=== PATIENT | female | born 1995 | race Caucasian/White ===

== ENCOUNTER 2023-03-09 19:32 | Emergency (ER) | payer OTHER, SELFPAY ==
[2023-03-09 19:44] VITALS: BP 158/97; PULSE 99; RESP 16; TEMP 36.8; O2SAT 97; BMI 41.3
--- NOTE | 2023-03-09 20:24 | ED.BACK1 ---
HPI - Back Pain/Injury General Chief Complaint: Back Pain/Injury Stated Complaint: BACK PAIN Time Seen by Provider: 03/09/23 19:54 Source: patient Mode of arrival: walk-in Limitations: no limitations History of Present Illness HPI Narrative: Patient is a 27-year-old female who presents to the emergency department for the evaluation of pain in the low back for the last day. She states she was petting horses when she bent over yesterday and felt a pull in her left low back. She states the pain is changing in location between the bilateral hips and paraspinal muscles of the lumbar spine. She denies any falls or direct trauma. She has had similar pain in the past. She is able to ambulate. No peripheral paresthesia or radicular pain to the lower extremities. She is not concerned for . Related Data Home Medications Medication Instructions Recorded Confirmed dextroamphetamine-amphetamine 20 20 mg PO BID 03/09/23 03/09/23 mg tablet hydroxyzine HCl 10 mg tablet 10 mg PO TID PRN anxiety 03/09/23 03/09/23 lamotrigine 150 mg tablet 150 mg PO DAILY 03/09/23 03/09/23 oxycodone-acetaminophen 5 mg-325 1 tab PO Q6H PRN pain 03/09/23 03/09/23 mg tablet (Percocet) Previous Rx's Medication Instructions Recorded ketorolac 10 mg tablet 10 mg PO TID PRN pain #10 tabs 03/09/23 methylprednisolone 4 mg tablets in See Rx Instructions .Route 03/09/23 a dose pack (Medrol (Murray)) .COMPLEX #21 ea orphenadrine citrate 100 mg 100 mg PO BID PRN muscle pain #14 03/09/23 tablet,extended release tabs Allergies Allergy/AdvReac Type Severity Reaction Status Date / Time morphine AdvReac Unknown Verified 03/09/23 19:48 Review of Systems ROS Constitutional Denies: fever or chills Ears, nose, mouth, and throat Denies: throat pain or nasal congestion Cardiovascular Denies: chest pain Respiratory Denies: shortness of breath or cough Gastrointestinal Denies: abdominal pain, nausea, vomiting or diarrhea Genitourinary Denies: painful urination or urinary incontinence Musculoskeletal Reports: back pain; Denies: neck pain, extremity pain or extremity swelling Integumentary/Breast Denies: rash Neurological Denies: numbness in extremities or weakness in extremities Endocrine Denies: excessive urination PFSH PFS Social History Smoking status: Current some day smoker Exam Narrative Exam Narrative: Gen.: Awake, alert, in no distress Head: Normocephalic, atraumatic ENT: Moist mucous membranes Respiratory: No respiratory distress, lungs clear bilaterally Cardio: Regular rate and rhythm Back: Diffuse mild tenderness of the paraspinal muscles of the left low back with no bony point tenderness of the midline spine, no obvious deformity or step-off Extremities: Moves extremities equally, normal dorsiflexion and plantarflexion of the lower extremities with normal hip flexion bilaterally. No decrease in sensation to the medial thighs Psych: Normal mood and affect Neuro: No focal neuro deficit Skin: Warm, dry, intact Constitutional Vital Signs, click to edit/add: Last Vital Signs Temp 98.3 F 03/09/23 19:44 Pulse 99 H 03/09/23 19:44 Resp 16 03/09/23 19:44 BP 158/97 H 03/09/23 19:44 Pulse Ox 97 03/09/23 19:44 O2 Del Method Room Air 03/09/23 19:44 Course Vital Signs Vital signs: Vital Signs Temperature 98.3 F 03/09/23 19:44 Pulse Rate 99 H 03/09/23 19:44 Respiratory Rate 16 03/09/23 19:44 Blood Pressure 158/97 H 03/09/23 19:44 Pulse Oximetry 97 03/09/23 19:44 Oxygen Delivery Method Room Air 03/09/23 19:44 Temperature 98.3 F 03/09/23 19:44 Pulse Rate 99 H 03/09/23 19:44 Respiratory Rate 16 03/09/23 19:44 Blood Pressure 158/97 H 03/09/23 19:44 Pulse Oximetry 97 03/09/23 19:44 Oxygen Delivery Method Room Air 03/09/23 19:44 MDM - Back Pain/Injury MDM Narrative Medical decision making narrative: Imaging deferred as the patient has a history of low back pain and had no direct injury or trauma to the low back. She is neurovascularly intact with no radicular symptoms or paresthesias. Follow-up with PCP and return to the ER if symptoms change or worsen. Medical Records Attestation: I reviewed the patient's medical records. Discharge Plan Discharge Chief Complaint: Back Pain/Injury Clinical Impression: Strain of lumbar region Patient Disposition: Home, Self-Care Time of Disposition Decision: 20:23 Condition: Good Prescriptions / Home Meds: New ketorolac 10 mg tablet 10 mg PO TID PRN (Reason: pain) Qty: 10 0RF orphenadrine citrate 100 mg tablet extended release 100 mg PO BID PRN (Reason: muscle pain) Qty: 14 0RF methylprednisolone [Medrol (Murray)] 4 mg tablets,dose pack See Rx Instructions .ROUTE .COMPLEX Qty: 21 0RF Rx Instructions: Taper as directed No Action dextroamphetamine-amphetamine 20 mg tablet 20 mg PO BID lamotrigine 150 mg tablet 150 mg PO DAILY oxycodone-acetaminophen [Percocet] 5-325 mg tablet 1 tab PO Q6H PRN (Reason: pain) hydroxyzine HCl 10 mg tablet 10 mg PO TID PRN (Reason: anxiety) Instructions: Muscle Strain (ED), Back Pain (ED) Stand Alone Forms: Portal Instructions Referrals: Bushra Mckinnon [Primary Care Provider] - 1 week Discharge Date/Time: 03/09/23 21:00
[2023-03-09] MEDS: ORPHENADRINE 60 MG/ 2 ML VIAL IM (20:47)
[2023-03-09] MEDS: KETOROLAC TROMETHAMINE 60 MG/2 ML VIAL IM (20:48)
[2023-03-09] MEDS: OXYCODONE HCL/ACETAMINOPHEN 5MG/325MG 1 TAB PO (20:48)
== END 2023-03-09 21:00 | disposition home or self-care (01) ==
PROVIDERS: Emergency Provider Internal Medicine
DX: S39.012A Strain of muscle, fascia and tendon of lower back, initial encounter (principal); Z79.899 Other long term (current) drug therapy; F17.210 Nicotine dependence, cigarettes, uncomplicated; X50.9XXA Other and unspecified overexertion or strenuous movements or postures, initial encounter
CPT/HCPCS: 96372; 99284; J1885; J2360

== ENCOUNTER 2024-10-11 09:47 | Outpatient (OUT) | payer OTHER, SELFPAY ==
--- OUTSIDE RECORDS SUMMARY | 2024-10-11 08:50 | XMS_ITS | Encounter Summary ---
Author Organization [facility] Address [address] [place] [address] Care Team Providers Care Barrel Lathe Operator Outside Name Role Phone Bushra Mckinnon MD Primary Care Provider [phone] Nikko Kenny DO Unavailable [phone] Reason for Visit * Reason Comments Infertility Pt present today to discuss fertility. Encounter Details Date Type Department Care Team (Late st Contact Info) Description 10/11/2024 8:50 AM EDT Office Visit [facility] [address] [facility] [phone] Mat Magallanes DO [address] [facility] [address] [place], [place] [id number] Female infertility; PCOS (polycystic ovarian syndrome); Abnormal uterine bleeding (AUB) Social History Tobacco Use Types Packs/Day Years Used Date Smoking Tobacco: Never Smokeless Tobacco: Never Comments:No selections avail able, vaped 2019 and radha pouches 2021 for 4 months Alcohol Use Standard Drinks/Week Comments Not Currently 0 (1 standard drink = 0.6 oz pur e alcohol) Comments No Sex and Gender Information Value Date Recorded Sex Assigned at Female 04/20/2023 7:43 AM EST Legal Sex Female 11:22 PM EDT Gender Identity Female 04/20/2023 7:43 AM EST Sexual Orientation Straight 04/20/2023 7: 43 AM EST documented as of this encounter Last Filed Vital Signs Vital Sign Reading Time Taken Comments Blood Pressure 122/80 10/11/2024 8:49 AM EDT Pulse - - Temperature - - Respiratory Rate - - Oxygen Saturation - - Inhaled Oxygen Concentration - - Weight 129 kg (284 lb) 10/11/2024 8:49 AM EDT Height 177.8 cm (5' 10 ) 10/11/2024 8:49 AM EDT Body Mass Index 40.75 10/11/2024 8:49 AM EDT documented in this encounter Plan of Treatment Upcoming Encounters Date Type Department Care Team (Late st Contact Info) Description 11/09/2024 3:50 PM EDT Office Visit [facility] [address] [facility] [place] [phone] Mat Magallanes, DO [address] [place] [address] 02/08/2025 3:20 PM EST Procedure Visit [facility] [address] [facility] [place] [phone] Mat Magallanes, DO [address] [place] [address] Scheduled Orders Name Type Priority Associated Diagnoses Orde r Schedule hCG, quantitative, Lab Routine PCOS (polycystic ovarian syndrome) Ordered: 10/11/2024 TSH Lab Routine PCOS (polycystic ovarian syndrome) Ordered: 10/11/2024 T4, free Lab Routine PCOS (polycystic ovarian syndrome) Ordered: 10/11/2024 CBC and differential Lab Routine PCOS (polycystic ovarian syndrome) Ordered: 10/11/2024 Follicle stimulating hormone Lab Routine PCOS (polycystic ovarian syndrome) Ordered: 10/11/2024 Luteinizing hormone Lab Routine PCOS (polycystic ovarian syndrome) Ordered: 10/11/2024 Hemoglobin A1c Lab Routine Abnormal uterine bleeding (AUB) Ordered: 10/11/2024 DHEA-sulfate Lab Routine PCOS (polycystic ovarian syndrome) Ordered: 10/11/2024 DHEA Lab Routine PCOS (polycystic ovarian syndrome) Expected: 10/11/2024 (Approximate), Expires: 10/11/2025 US Pelvis w/ TV Imaging Routine PCOS (polycystic ovarian syndrome) Expected: 10/11/2024, Expires: 10/11/2025 Antimullerian hormone (AMH) Lab Routine PCOS (polycystic ovarian syndrome) Abnormal uterine bleeding (AUB) Expected: 10/11/2024 (Approximate), Expires: 10/11/2025 documented as of this encounter Visit Diagnoses Diagnosis Female infertility Female infertility of unspecified origin PCOS (polycystic ovarian syndrome) Polycystic ovaries Abnormal uterine bleeding (AUB) documented in this encounter Care Teams Barrel Lathe Operator Outside Relationship Specialty Start Date End Date Bushra Mckinnon MD [address] [facility] [place] [address] PCP - General Pediatrics 07/23/22 Nikko Kenny DO [address] [facility] [address] [place] [address] Referring Physician Neurology 03/30/24 documented as of this encounter
--- OUTSIDE RECORDS SUMMARY | 2024-10-11 09:49 | XMS_ITS | Encounter Summary ---
Author Organization [facility] Address [address] [facility] [place] [address] Care Team Providers Care Web Development Instructor Name Role Phone Bushra Mckinnon MD Primary Care Provider [phone] Nikko Kenny DO Unavailable [phone] Encounter Details Date Type Department Care Team (Latest Contact Info) Description 10/10/2024 Travel Social History Tobacco Use Types Packs/Day Years Used Date Smoking Tobacco: Never Smokeless Tobacco: Never Comments:No selections avail able, vaped 2019 and radha pouches 2021 for 4 months Alcohol Use Standard Drinks/Week Comments Not Currently 0 (1 standard drink = 0.6 oz pur e alcohol) Comments Unknown Sex and Gender Information Value Date Recorded Sex Assigned at Female 04/20/2023 7:43 AM EST Legal Sex Female 11:22 PM EDT Gender Identity Female 04/20/2023 7:43 AM EST Sexual Orientation Straight 04/20/2023 7: 43 AM EST documented as of this encounter Plan of Treatment Upcoming Encounters Date Type Department Care Team (Late st Contact Info) Description 11/09/2024 3:50 PM EDT Office Visit [facility] [address] [facility] [place] [address] Mat Magallanes DO [address] [place], [place] [phone] 02/08/2025 3:20 PM EST Procedure Visit [facility] [address] [place] [address] Mat Magallanes DO [address] [place] [address] [place] [address] documented as of this encounter Visit Diagnoses Not on filedocumented in this encounter Care Teams Web Development Instructor Relationship Specialty Start Date End Date Bushra Mckinnon MD [address] [place], [place] [phone] PCP - General Pediatrics 07/23/22 Nikko Kenny DO [address] [place] [address] Referring Physician Neurology 03/30/24 documented as of this encounter
--- OUTSIDE RECORDS SUMMARY | 2024-10-11 09:49 | XMS_ITS | Encounter Summary ---
Author Organization [facility] Address [address] [facility] [place] [address] Care Team Providers Care Prestressed Concrete Laborer Name Role Phone Bushra Mckinnon MD Primary Care Provider [phone] Nikko Kenny DO Unavailable [phone] Encounter Details Date Type Department Care Team (Late st Contact Info) Description 08/16/2022 Abstract [facility] [address] [place] [phone] Ricardo Strange, DPM [address] [place], [place] [phone] Social History Tobacco Use Types Packs/Day Years Used Date Smoking Tobacco: Never Smokeless Tobacco: Never Alcohol Use Standard Drinks/Week Comments Not Currently [...] Description 11/09/2024 3:50 PM EDT Office Visit [facility] [place] [facility] [address] [facility] [place] [phone] Mat Magallanes DO [address] [facility] [place] [address] 02/08/2025 3:20 PM EST Procedure Visit [facility] [address] [facility] [place] [address] Mat Magallanes DO [address] [facility] [place] [address] documented as of this encounter Visit Diagnoses Not on filedocumented in this encounter Care Teams Prestressed Concrete Laborer Relationship Specialty Start Date End Date Bushra Mckinnon MD [address] [place] [address] PCP - General Pediatrics 07/23/22 Nikko Kenny DO [address] [place], [place] [phone] Referring Physician Neurology 03/30/24 documented as of this encounter
--- OUTSIDE RECORDS SUMMARY | 2024-10-11 09:49 | XMS_ITS | Encounter Summary ---
Author Organization [employer] Address [id number] [address] [place] [address] Care Team Providers Care Yarn Mercerizer Operator Helper Name Role Phone Bushra Mckinnon MD Primary Care Provider [phone] Encounter Details Date Type Department Care Team (Late st Contact Info) Description 03/17/2024 Telephone [facility] [address] [place] [phone] Caprice Hernandez RMA Social History Tobacco Use Types Packs/Day Years Used Date Smoking Tobacco: Never Smokeless Tobacco: Current Chew Alcohol Use Standard Drinks/Week Comments Yes 0 (1 standard drink = 0.6 oz pur e alcohol) rare Childcare Answer Date Recorded Childcare Unknown 08/11/2018 Employment Answer Date Recorded Employment Unknown 08/11/2018 Hunger Screening Answer Date Recorded Within the past 12 months we worried whether our food would run out before we got money to buy more. Never True 11/18/2023 Within the past 12 months th e food we bought just didn't last and we didn't have money to get more. Never True 11/18/2023 Purpose - Life Answer Date Recorded Purpose and direction in life Unknown Comments No Sex and Gender Information Value Date Recorded Sex Assigned at Not on file Legal Sex Female 4:15 PM EDT Gender Identity Not on file Sexual Orientation Not on file documented as of this encounter Miscellaneous Notes * Telephone Encounter - ANDIE Amaya - 03/17/2024 2:17 PM EST Patient referred with recent MRI. Please review MRI to determine if patient should schedule with spine care or neurosurgery. * Telephone Encounter - STU Hall - 03/17/2024 2:17 PM EST MRI and EMG reviewed. There is acute on chronic right L5 radiculopathy. If patient is having right or left leg radiation (as there was S1 nerve approximation) and or weakness she could see neurosurgery. If no significant symptoms, can start with spine care to trial pain management. Will need updated x-rays. Referral also mentioned bone marrow abnormality and looks like they ordered CBC, CMP and TIFFANIE but I do not see those results. * Telephone Encounter - ANDIE Amaya - 03/17/2024 2:17 PM EST Spoke with patient and she stated she wants to hold off on scheduling for now. Patient stated that her cream dumper said her labs don't show any autoimmune issues and also recommends getting a pelvic MRI. Patient stated she will call back to schedule when she's ready. documented in this encounter Plan of Treatment Not on file documented as of this encounter Visit Diagnoses Not on filedocumented in this encounter Care Teams Yarn Mercerizer Operator Helper Relationship Specialty Start Date End Date Bushra Mckinnon MD [address] [place] [address] PCP - General Family Medicine 07/30/22 documented as of this encounter
--- OUTSIDE RECORDS SUMMARY | 2024-10-11 09:49 | XMS_ITS | Encounter Summary ---
Author Organization [facility] Address [address] [facility] [place] [address] Care Team Providers Care Scoop Operator Name Role Phone Bushra Mckinnon MD Primary Care Provider [phone] Nikko Kenny DO Unavailable [phone] Encounter Details Date Type Department Care Team (Late st Contact Info) Description 10/11/2024 Bamboo flowsheet [facility] [address] [facility] [place] [address] Mat Magallanes DO [facility] [address] [place], [place] [address] Social History Tobacco Use Types Packs/Day Years Used Date Smoking Tobacco: Never Smokeless Tobacco: Never Comments:No selections avail able, vaped 2017- 2019 and radha pouches 2021 for 4 [...] EDT Office Visit [facility] [address] [place] [address] Mat Magallanes DO [address] [place] [address] 02/08/2025 3:20 PM EST Procedure Visit [facility] [address] [facility] [place] [phone] Mat Magallanes DO [address] [facility] [address] [place], [place] [phone] documented as of this encounter Visit Diagnoses Not on filedocumented in this encounter Care Teams Scoop Operator Relationship Specialty Start Date End Date Bushra Mckinnon MD [address] [place] [address] PCP - General Pediatrics 07/23/22 Nikko Kenny DO [address] [place] [address] Referring Physician Neurology 03/30/24 documented as of this encounter
--- OUTSIDE RECORDS SUMMARY | 2024-10-11 09:49 | XMS_ITS | Encounter Summary ---
Author Organization [facility] Address [address] [facility] [place] [address] Care Team Providers Care Plywood Stock Grader Name Role Phone Bushra Mckinnon MD Primary Care Provider [phone] Nikko Kenny DO Unavailable [phone] Encounter Details Date Type Department Care Team (Late st Contact Info) Description 08/09/2022 External Result Encounter [facility] External Department Unsolicited Ranulfo Osuna MD [address] [facility] [address] [place] [address] Social History Tobacco Use Types Packs/Day Years Used Date Smoking Tobacco: Never Assessed Comments Unknown Sex and Gender Information Value [...] EDT Office Visit [facility] [address] [place] [address] Mat Magallanes DO [address] [place], [place] [phone] 02/08/2025 3:20 PM EST Procedure Visit [facility] [address] [place] [address] Mat Magallanes, DO [address] [facility] [address] [place] [phone] documented as of this encounter Procedures Procedure Name Priority Date/Time Associated Diagnosis Comments VASC US LOWER EXTREMITY VENOUS DUPLEX RIGHT 08/09/2022 9:35 AM EDT documented in this encounter Results * Vascular US lower extremity venous duplex right (08/09/2022 9:35 AM EDT) Anatomical Region Laterality Modality Lower Extremities Ultrasound 08/09/2022 9:35 AM EDT Impressions 08/11/2022 10:48 AM EDT NO EVIDENCE OF DEEP VENOUS THROMBOSIS IN THE RIGHT LOWER EXTREMITY. NO SUPERFICIAL THROMBOPHLEBITIS WAS NOTED. Impression dictated by: Garry Plata M.D.08/09/2022 9:36 AM Dictation Location: [place] [address] Tech: Cristina Yuen Transcribed By: MICAH 08/09/2236 Dictated By: Garry Plata MD 08/09/2235 Signed By: <Electronically signed by MD Garry Plata in OV> 08/09/22 0936 Narrative 08/11/2022 10:48 AM EDT [facility] Main [address] [address] Ultrasound Report Signed Patient: Colleen Guajardo MR#: [id number] 12 : 1995 Acct:[id number] Age/Sex: 26 / F ADM Date: 08/08/22 Loc: ER Room: Type: [facility] ER Attending Dr: Ordering Provider: Ranulfo Osuna PA-C Date of Service: 08/08/22 US/US venous duplex LE RT: post op calf pain Copies to: Ranulfo Osuna PA-C RIGHT LOWER EXTREMITY VENOUS DUPLEX INDICATION: Painful swollen right leg Unilateral right lower extremity venous duplex Doppler study was obtained utilizing B-mode, color- flow and spectral Doppler. FINDINGS: The right common femoral, femoral, and popliteal veins showed adequate compressibility, color-flow and augmentation. The right posterior tibial and peroneal veins were compressible, as well as proximal greater saphenous vein. The contralateral left common femoral vein was compressible with color-flow and augmentation. US/US venous duplex LE RT Procedure Note Garry Plata MD - 08/11/2022 [facility] [place] [address] Ultrasound Report Signed Patient: Colleen Guajardo JMR#: [id number] [birth year] : 1995Acct:[id number] Age/Sex: 26 / FADM Date: 08/08/22 Loc: ER Room:Type: [facility] ER Attending Dr: Ordering Provider: Ranulfo Osuna PA-C Date of Service: 08/08/22 US/US venous duplex LE RT: post op calf pain Copies to: Ranulfo Osuna PA-C RIGHT LOWER EXTREMITY VENOUS DUPLEX INDICATION: Painful swollen right leg Unilateral right lower extremity venous duplex Doppler study was obtainedutilizing B-mode, color- flow and spectral Doppler. FINDINGS: The right common femoral, femoral, and popliteal veins showedadequate compressibility, color-flow and augmentation. The right posterior tibial and peronealveins were compressible, as well as proximal greater saphenous vein. The contralateral left commonfemoral vein was compressible with color-flow and augmentation. US/US venous duplex LE RT IMPRESSION: NO EVIDENCE OF DEEP VENOUS THROMBOSIS IN THE RIGHT LOWER EXTREMITY. NOSUPERFICIAL THROMBOPHLEBITIS WAS NOTED. Impression dictated by: Garry Plata M.D.08/09/2022 9:36 AM Dictation Location[facility] Tech: Cristina Yuen Transcribed By: MICAH 08/09/22935 Dictated By: Garry Plata MD 08/09/2235 Signed By: <Electronically signed by MD Garry Plata in OV> 08/09/229[address] Ranulfo Osuna MD IMG US PROCEDURES Final Result documented in this encounter Visit Diagnoses Not on filedocumented in this encounter Care Teams Plywood Stock Grader Relationship Specialty Start Date End Date Bushra Mckinnon MD [address] [facility] [place] [address] PCP - General Pediatrics 07/23/22 Nikko Kenny DO [address] [place] [address] Referring Physician Neurology 03/30/24 documented as of this encounter
--- OUTSIDE RECORDS SUMMARY | 2024-10-11 09:49 | XMS_ITS | Clinical Summary ---
Author Organization [employer] tem Address [facility] [place]-[id number] [address] [place] [address] Care Team Providers Care Packing House Supervisor Name Role Phone Bushra Mckinnon MD Primary Care Provider [phone] Allergies Active Allergy Reactions Criticality Noted Date Comments Amoxicillin Palpitations Medium 08/01/2022 Medications dextroamphetamine- amphetamine (ADDERALL) 20 mg tablet Take 1 tablet (20 mg total) by mouth in the morning and 1 tablet (20 mg total) before bedtime. Active 91-wcnp-mkogkz 9-dha 31 mg iron- 1 mg-200 mg capsuleIndications :Patient desires ,Encounte r for preconception consultation Take 1 capsule by mouth in the morning. 90 capsule 3 4 Active Active Problems Problem Noted Date Diagnosed Date Anxiety and depression 09/05/2016 Immunizations Immunization Administration Dates Next Due Influenza, Unspecified 02/08/2016 Family History Medical History Relation Name Comments Diabetes Father Hypertension Father Lung cancer Father Breast cancer Maternal Grandmother Breast cancer Maternal great-grandmother No Known Problems Mother Relation Name Status Comments Father Maternal Grandmother Maternal great-grandmother Alive Mother Alive Social History Tobacco Use Types Packs/Day Years Used Date Smoking Tobacco: Never Smokeless Tobacco: Current Chew Tobacco Cessation:Ready to Q uit: Not Asked; Counseling Given: Not Answered Alcohol Use Standard Drinks/Week Comments Yes 0 [...] on file Sexual Orientation Not on file Last Filed Vital Signs Vital Sign Reading Time Taken Comments Blood Pressure 126/82 03/31/2024 8:59 AM EST Pulse 86 03/31/2024 8:59 AM EST Temperature 36.3 C (97.3 F) 08/01/2022 10:02 AM EDT Respiratory Rate 20 03/31/2024 8:59 AM EST Oxygen Saturation 100% 08/01/2022 11: 00 AM EDT Inhaled Oxygen Concentration - - Weight 108.3 kg (238 lb 12.8 oz) 03/31/2024 8:59 AM EST Height 177.8 cm (5' 10 ) 03/31/2024 8:59 AM EST Body Mass Index 34.26 03/31/2024 8:59 AM EST Plan of Treatment Health Maintenance Due Date Last Done Comments Tobacco Counseling 1996 Depression Screening 2008 Adult BMI Follow Up Plan 2014 Pap Smear 2017 DTaP,Tdap and Td Vaccines (7 - Td or Tdap) 10/13/2019 10/12/2009, 06/30/2002, 06/11/1998, Additional history exists Influenza Vaccine 10/31/2024 12/28/2019, 02/08/2016 Adult BMI Screening 03/31/2025 03/31/2024 Tobacco Screening 03/31/2025 03/31/2024 Medical Devices Implanted Type Area Chef Teacher Device Identifier Shelf Expiration Date Model / Serial / Lot [place] Sut 2.9mm Shrt Pshlk Bcmps Ea=Bill-Only - Sna - [id number] Implanted:Qty: 1 on 08/01/2022 by Ricardo Strange DPM at [facility] [place] Right: Ankle Arthrex 09/29/2022 [id number] / NA / [id number] [place] Sut Arthx Dx Fibertak Ndl Strl Lf Ea=Bill-Only - [facility] - [id number] Implanted:Qty: 2 on 08/01/2022 by Ricardo Strange DPM at [facility] [place] Right: Ankle Arthrex 12/30/2026 AR-[id number] / NA / [id number] Insurance [employer] BENEFITS/[employer]IRL[employer] Care Teams Packing House Supervisor Relationship Specialty Start Date End Date Bushra Mckinnon MD [address] [place] [address] PCP - General Family Medicine 07/30/22
--- OUTSIDE RECORDS SUMMARY | 2024-10-11 09:49 | XMS_ITS | Encounter Summary ---
Author Organization [facility] Address [address] [place] [address] Care Team Providers Care Automotive Sales Specialist Name Role Phone Bushra Mckinnon MD Primary Care Provider [phone] Nikko Kenny DO Unavailable [phone] Encounter Details Date Type Department Care Team (Late st Contact Info) Description 07/30/2022 Orders Only [facility] [address] [place] [id number] [facility] [place], [place] [address] [place] [address] Social History Tobacco Use Types Packs/Day Years [...] 11/09/2024 3:50 PM EDT Office Visit [facility] [address] [place] [address] Mat Magallanes DO [address] [place], [place] [id number] 02/08/2025 3:20 PM EST Procedure Visit [facility] [address] [place] [address] Mat Magallanes DO [address] [facility] [place] [address] documented as of this encounter Visit Diagnoses Not on filedocumented in this encounter Care Teams Automotive Sales Specialist Relationship Specialty Start Date End Date Bushra Mckinnon MD [address] [place] [address] PCP - General Pediatrics 07/23/22 Nikko Kenny DO [address] [place] [address] Referring Physician Neurology 03/30/24 documented as of this encounter
--- OUTSIDE RECORDS SUMMARY | 2024-10-11 09:49 | XMS_ITS | Clinical Summary ---
Author Organization [facility] Address [address] [place] [address] Care Team Providers Care Technician Preventative Medicine Name Role Phone Bushra Mckinnon MD Primary Care Provider [phone] Nikko Kenny DO Unavailable [phone] Allergies Active Allergy Reactions Criticality Noted Date Comments Amoxicillin Palpitations Medium 08/01/2022 Other Reaction(s): Dizziness , Headache , Nausea Medications amphetamine-dex troamphetamine (Adderall) 20 MG tablet Take 20 mg by mouth in the morning and 20 mg before bedtime. Active hydrOXYzine HCl (Atarax) 10 MG tablet Take 10 mg by mouth. Active lamoTRIgine (LaMICtal) 150 MG tablet Take 150 mg by mouth in the morning and 150 mg in the evening. Active tiZANidine (Zanaflex) 4 MG tabletIndicatio ns:S/P foot surgery TAKE 1 TABLET BY MOUTH AT BEDTIME 30 tablet 5 Active metFORMIN XR (Glucophage-XR) 500 MG 24 hr tabletIndicatio ns:PCOS (polycystic ovarian syndrome),Abnor mal uterine bleeding (AUB) Take 1 tablet (500 mg) by mouth in the evening. Take with meals Do not crush, chew, or split. 30 tablet 11 5 10/12/19 26 Active MV-Min-Fe Fum-FA-DHA ( 1 PO) Take by mouth 10/12/19 25 Discontinu ed(Therapy completed) Encounters Date Type Department Care Team Description 10/11/2024 8:50 AM EDT Office Visit [facility] [address] [place] [address] [place] [address] Mat Magallanes DO Female infertility; PCOS (polycystic ovarian syndrome); Abnormal uterine bleeding (AUB) 10/11/2024 Bamboo flowsheet [facility] [address] [place] [address] [place] [phone] Mat Magallanes DO 10/10/2024 Travel from Last 3 Months Immunizations Immunization Administration Dates Next Due DTaP 06/30/2002 DTaP / HiB / IPV 11/30/1997,10/11/1997, 8 DTaP, Unspecified 06/11/1998, 8,10/19/1997,1997 HPV 9-Valent 04/03/2020,03/05/2020,01/09/2020 Hep B, Adolescent or Pediatric 1996 Hib (HbOC) 06/11/1998,11/30/1997 Hib / Hep B 10/19/1997,09/11/1997 IPV 06/30/2002 Influenza, Unspecified 02/08/2016 Influenza, injectable, MDCK, preservative free, quadrivalent 12/28/2019 Influenza, seasonal, injectable 02/08/2016 MMR 06/30/2002,10/19/1997 OPV 11/30/1997,10/19/1997,09/11/1997 Tdap 10/12/2009 Family History Medical History Relation Name Comments Cancer Father Butch Shock - lung cancer Cancer Maternal Grandfather Great Grandma Starr Romero - breast cancer Cancer Maternal Grandmother Nicole Morales - johnathon ast cancer Relation Name Status Comments Father Butch Shock - lung cancer Maternal Grandfather Great Grandma Starr Heather - breast cancer Maternal Grandmother Nicole Morales - breast cancer Mother Alive Social History Tobacco Use Types [...] Orientation Straight 04/20/2023 7: 43 AM EST Last Filed Vital Signs Vital Sign Reading Time Taken Comments Blood Pressure 122/80 10/11/2024 8:49 AM EDT Pulse 83 03/30/2024 8:27 AM EST Temperature 36.4 C (97.5 F) 11/05/2022 9:47 AM EDT Respiratory Rate - - Oxygen Saturation 97% 02/22/2024 9:08 AM EST Inhaled Oxygen Concentration - - Weight 129 kg (284 lb) 10/11/2024 8:49 AM EDT Height 177.8 cm (5' 10 ) 10/11/2024 8:49 AM EDT Body Mass Index 40.75 10/11/2024 8:49 AM EDT Plan of Treatment Upcoming Encounters Date Type Department Care Team (Late st Contact Info) Description 11/09/2024 3:50 PM EDT Office Visit [facility] [address] [place] [address] [place] [phone] Mat Magallanes DO [address] [place] [address] 02/08/2025 3:20 PM EST Procedure Visit [facility] [address] [place] [address] [place] [phone] Mat Magallanes, DO [address] [place] [address] Insurance [employer] Care Teams Technician Preventative Medicine Relationship Specialty Start Date End Date Bushra Mckinnon MD [address] [place] [address] PCP - General Pediatrics 07/23/22 Nikko Kenny DO [address] [place] [address] Referring Physician Neurology 03/30/24
[2024-10-11 10:26] LABS: Hematocrit 42.4 % (36.0-48.0); Hemoglobin 14.0 g/dL (12.0-16.0); Immature Granulocytes Abs Auto 0.02 10^3/uL (0.00-0.03); Immature Granulocytes Pct Auto 0.2 % (0.0-0.5); Lymphocytes Absolute Auto 2.2 10^3/uL (1.2-3.8); Mean Corpuscular HGB Conc 33.0 g/dL (29.9-35.2); Mean Corpuscular Hemoglobin 28.5 pg (26.7-34.0); Mean Corpuscular Volume 86.4 fL (81.0-99.0); Platelet Count 422 10^3/uL (150-450); Red Blood Count 4.91 10^6/uL (4.20-5.40); White Blood Count 8.6 10^3/uL (4.0-11.0)
[2024-10-11 11:27] LABS: Thyroid Stimulating Hormone 2.015 uIU/mL (0.358-3.740)
[2024-10-12 12:09] LABS: FSH 3.2 mIU/mL (.)
== END 2024-10-11 09:48 | disposition home or self-care (01) ==
PROVIDERS: Visit Provider Obstetrics & Gynecology
DX: E28.2 Polycystic ovarian syndrome (principal); N93.9 Abnormal uterine and vaginal bleeding, unspecified
CPT/HCPCS: 36415; 82626; 82627; 83001; 83002; 83036; 84439; 84443; 84702; 85025

== ENCOUNTER 2025-02-17 09:58 | Day surgery (SDC) | payer OTHER, SELFPAY ==
--- OUTSIDE RECORDS SUMMARY | 2025-02-17 10:01 | XMS_ITS | Clinical Summary ---
Author Organization [facility] Address [address] [place] [address] Care Team Providers Care Retail Client Solutions Consultant Name Role Phone Bushra Mckinnon MD Primary Care Provider [phone] Nikko Kenny DO Unavailable [phone] Allergies Active AllergyReactionsCriticalityNoted DateCommentsAmoxicillinPalpitations Jdaljz6008/01/2022 Other Reaction(s): Dizziness , Headache , Nausea Medications MedicationSigDispense QuantityRefillsLast FilledStart DateEnd DateStatus amphetamine-dextroamphetamine (Adderall) 20 MG tablet Take 20 mg by mouth in the morning and 20 mg before bedtime.Active metFORMIN XR (Glucophage-XR) 500 MG 24 hr tablet Indications:PCOS (polycystic ovarian syndrome),Abnormal uterine bleeding (AUB) Take 1 tablet (500 mg) by mouth in the evening. Take with meals Do not crush, chew, or split. 30 tablet 11010/11/782685/6Active sertraline (Zoloft) 50 MG tablet Take 50 mg by mouth Daily5Active metFORMIN XR (Glucophage-XR) 500 MG 24 hr tablet Indications:PCOS (polycystic ovarian syndrome)Take 1 tablet (500 mg) by mouth in the evening. Take with meals Do not crush, chew, or split. 90 tablet 5Active letrozole (Femara) 2.5 MG chemo tablet Indications:Fallopian tube disorder,PCOS (polycystic ovarian syndrome),Abnormal uterine bleeding (AUB)Take 3 tablets (7.5 mg total) by mouth Daily for 5 days. 15 tablet /5Active letrozole (Femara) 2.5 MG chemo tablet Indications:PCOS (polycystic ovarian syndrome),Abnormal uterine bleeding (AUB) Take 3 tablets (7.5 mg total) by mouth Daily for 5 days. 15 tablet Expired Encounters DateTypeDepartmentCare JeeoAxcwryqtdvk91/15/2025Telephone [facility] [address] [facility] [place] [address] Kati Calivn LPN 01/16/2025Telephone [facility] [address] [facility] [place] [address] Kati Calvin LPN 12/20/2024Telephone [facility] [address] [facility] [place] [address] Kati Calvin LPN 12/08/2024External Result Encounter [facility] External Department Unsolicited Mat Magallanes DO 12/08/2024Telephone [facility] [address] [facility] [place] [address] Rosario Villagomez MA 12/07/2024Telephone [facility] [address] [facility] [place] [address] Kati Calvin LPN 11/18/2024Telephone [facility] [address] [facility] [place] [address] Kati Calvin, KOMAL from Last 3 Months Immunizations ImmunizationAdministration DatesNext NwoQStW5306/30/2002DTaP / HiB / IPV11/30/1997 ,10/11/1997,09/11/1997DTaP, Stjkmvqwmjq50/12/1999,11/30/1997,10/19/1997, 09/11/1997HPV 9-Wywgog1104/03/2020,03/05/2020,01/09/2020Hep B, Adolescent or Chgisuygd61/15/1997Hib ([facility])06/11/1998,11/30/1997Hib / Hep B010/19/1997, 09/11/1997IPV06/30/2002Influenza, Ldqvcsmcywt60/09/2016Influenza, injectable, MDCK, preservative free, huxsfftnrlts43/28/2020Influenza, seasonal, injectable 02/08/2016MMR06/30/2002,10/19/1997OPV1,10/19/1997,09/11/1997Tdap 10/12/2009 Family History Medical HistoryRelationNameCommentsCancerFatherJoseph Shock - lung cancerCancer Maternal GrandfatherGreat Grandma Starr Heather - breast cancerCancerMaternal GrandmotherCheryl Grieger - breast cancerRelationNameStatusCommentsFatherJoseph Shock - lung cancerDeceasedMaternal GrandfatherGreat Grandma Starr Heather - breast cancerMaternal GrandmotherCheryl Grieger - breast cancerMotherAlive Social History Tobacco UseTypesPacks/DayYears UsedDateSmoking Tobacco: NeverSmokeless Tobacco: Never Comments:No selections avail able, vaped 2017- 2019 and radha pouches 2021 for 4 months Alcohol UseStandard Drinks/WeekCommentsNot Currently0 (1 standard drink = 0.6 oz pure alcohol)CommentsNoSex and Gender InformationValueDate RecordedSex Assigned at LcuxaHftpxl25/19/2024 7:43 AM ESTLegal VvyRyijru89/15/2023 11:22 PM EDTGender ZvsztbzfCmzpqq99/19/2024 7:43 AM ESTSexual OrientationStraight 04/20/2023 7:43 AM EST Last Filed Vital Signs Vital SignReadingTime TakenCommentsBlood Peqkzppn023/7809 3:40 PM EDT Lrrfz906803/30/2024 8:27 AM FRUGmtezuhtmoi87.4 ??C (97.5 ??F)11/05/2022 9:47 AM EDTRespiratory Rate--Oxygen Zilbnrbfea98%02/22/2024 9:08 AM ESTInhaled Oxygen Concentration--Mdrsow294 kg (279 lb 8 oz)11/09/2024 3:40 PM NOMXccpjb184.8 cm (5' 10 )10/11/2024 8:49 AM EDTBody Mass Index40. 8:49 AM EDT Plan of Treatment DateTypeDepartmentCare Team (Latest Contact Info)Eoikemqtyvu36/12/2026 3:40 PM ESTProcedure Visit [facility] [address] [facility] [place] [address] Mat Magallanes DO [address] [facility] [place] [address] Procedures Procedure NamePriorityDate/TimeAssociated DiagnosisCommentsPROGESTERONERoutine 02/04/2025 10:42 AM EST EMKVOAEXVADZMpntdyn38/10/2025 4:29 PM EST SLWYMUJYIPGOBimajgz75/09/2025 10:32 AM EDT from Last 3 Months Results * Progesterone (02/04/2025 10:42 AM EST) Only the most recent of3 resultswithin the time period is included. ComponentValueRef RangeTest MethodAnalysis TimePerformed AtPathologist Signature SHTQENOIJFQG92.5ng/mLPROMEDICAComment: FEMALES: 1st Tri: ??4.7-50.7 ng/ml 2nd Tri: ??19.4-45.3 ng/ml MENSTRUATING FEMALES: Follicular: ??0.3-1.5 ng/ml Mid Luteal: ??5.2-18.6 ng/ml [place]: <0.1-0.8 ng/ml ?? PERFORMED AT [facility] [address] [facility],[place] [address] Specimen (Source)Anatomical Location / LateralityCollection Method / Volume Collection TimeReceived Time02/04/2025 10:42 AM EST02/04/2025 3:27 PM EST Narrative Authorizing ProviderResult TypeResult StatusCorey Elpidio DOLAB BLOOD ORDERABLES Final ResultPerforming OrganizationAddressCity/State/ZIP CodePhone Number [facility] from Last 3 Months Insurance Care Teams Team MemberRelationshipSpecialtyStart DateEnd Date Bushra Mciknnon MD [address] [place] [address] PCP - GeneralPediatrics07/23/22 Nikko Kenny DO [address] [place] [address] Referring PhysicianNeurology1
--- OUTSIDE RECORDS SUMMARY | 2025-02-17 10:01 | XMS_ITS | Encounter Summary ---
Author Organization [facility] Address [address] [place] [address] Care Team Providers Care Choker Setter Name Role Phone Bushra Mckinnon MD Primary Care Provider [phone] Nikko Kenny DO Unavailable [phone] Encounter Details DateTypeDepartmentCare Team (Latest Contact Info)Vchopomdtte12/15/2025Telephone [facility] [address] [place] [address] [place] [address] Kati Calvin LPN Social History Tobacco UseTypesPacks/DayYears UsedDateSmoking Tobacco: NeverSmokeless Tobacco: Never Comments:No selections avail able, vaped 2017- 2019 and radha pouches 2021 for 4 months Alcohol UseStandard Drinks/WeekCommentsNot Currently0 (1 standard drink = 0.6 oz pure alcohol)CommentsNoSex and Gender InformationValueDate RecordedSex Assigned at BzgugCrhxwy80/19/2024 7:43 AM ESTLegal ZfvRlhhun34/15/2023 11:22 PM EDTGender FeuwuuykBhxwab56/19/2024 7:43 AM ESTSexual OrientationStraight 04/20/2023 7:43 AM ESTdocumented as of this encounter Miscellaneous Notes * Telephone Encounter - Kati Calvin LPN - 02/13/2025 10:01 AM EST 02/13/25 @9:08am Patient called and voiced that she started her cycle yesterday. Patient would liketo know if HSG will be ordered with this cycle or if just medication. 10:03 am Called patient and informed her that HSG would be performed this Thursday and orders would be sent to hospital. Patient aware that radiology will reach out to setup procedure between surgeries. Patient will reach out with any questions/concerns. Kati Trujillo LPN LMP: 02/12/25 Timed intercourse: 02/23/25 Day 21 labs: 03/04/25 documented in this encounter Plan of Treatment DateTypeDepartmentCare Team (Latest Contact Info)Jlgcnjmhcwv45/12/2026 3:40 PM ESTProcedure Visit [facility] [address] [facility] [place] [address] Mat Magallanes DO [address] [facility] [place] [address] NameTypePriorityAssociated DiagnosesOrder SchedulehCG, quantitative, LabRoutine Fallopian tube disorder PCOS (polycystic ovarian syndrome) Abnormal uterine bleeding (AUB) Expected: 02/13/2025 (Approximate), Expires: 02/13/2026XR hysterosalpingogram ImagingRoutine Fallopian tube disorder PCOS (polycystic ovarian syndrome) Abnormal uterine bleeding (AUB) Expected: 02/13/2025 (Approximate), Expires: 02/13/2026documented as of this encounter Visit Diagnoses Diagnosis Fallopian tube disorder Unspecified noninflammatory disorder of ovary, fallopian tube, and broad ligament PCOS (polycystic ovarian syndrome) Polycystic ovaries Abnormal uterine bleeding (AUB) documented in this encounter Care Teams Team MemberRelationshipSpecialtyStart DateEnd Date Bushra Mckinnon MD [address] [place] [address] PCP - GeneralPediatrics07/23/22 Nikko Kenny DO [address] [place] [address] Referring PhysicianNeurology1documented as of this encounter
--- OUTSIDE RECORDS SUMMARY | 2025-02-17 10:02 | XMS_ITS | Clinical Summary ---
Author Organization [facility] tem Address [facility] [id number] [address] [place] [address] Care Team Providers Care Registration Rep Name Role Phone Services, [facility] Primary Care Provider Allergies Active AllergyReactionsCriticalityNoted DateCommentsAmoxicillinPalpitations Detyzb0408/01/2022 Medications MedicationSigDispense QuantityRefillsLast FilledStart DateEnd DateStatus dextroamphetamine-amphetamine (ADDERALL) 20 mg tablet Take 1 tablet (20 mg total) by mouth in the morning and 1 tablet (20 mg total) before bedtime.Active 45-urff-vnrtjx 9-dha 31 mg iron- 1 mg-200 mg capsule Indications:Patient desires ,Encounter for preconception consultation Take 1 capsule by mouth in the morning. 90 capsule ctive Active Problems ProblemNoted DateDiagnosed DateAnxiety and kwpbpmbbky34/07/2017 Encounters DateTypeDepartmentCare EgpiZdchzfsifpm72/06/9441Dnaylm50/10/2694Utppgm06/08/2025 Travelfrom Last 3 Months Immunizations ImmunizationAdministration DatesNext DueInfluenza, Uzwysanxbtt64/09/2016 Family History Medical HistoryRelationNameCommentsDiabetesFatherHypertensionFatherLung cancer FatherBreast cancerMaternal GrandmotherBreast cancerMaternal great-grandmotherNo Known ProblemsMotherRelationNameStatusCommentsFatherDeceasedMaternal Grandmother Maternal great-grandmotherAliveMotherAlive Social History Tobacco UseTypesPacks/DayYears UsedDateSmoking Tobacco: NeverSmokeless Tobacco: CurrentChew Tobacco Cessation:Ready to Q uit: Not Asked; Counseling Given: Not Answered Alcohol UseStandard Drinks/WeekCommentsYes0 (1 standard drink = 0.6 oz pure alcohol)rareChildcareAnswerDate CkwjhvpnQdytyiadoCtfbzbg61/12/2019Employment AnswerDate NxtinfkqChymohxymyXxztmne45/12/2019Hunger ScreeningAnswerDate RecordedWithin the past 12 months we worried whether our food would run out before we got money to buy more.Never True11/18/2023Within the past 12 months the food we bought just didn't last and we didn't have money to get more.Never True4Purpose - LifeAnswerDate RecordedPurpose and direction in life Paqpbnz23/11/2021CommentsNoSex and Gender InformationValueDate Recorded Sex Assigned at BirthNot on fileLegal UyzTgoxoi26/27/2016 4:15 PM EDTGender IdentityNot on fileSexual OrientationNot on file Last Filed Vital Signs Vital SignReadingTime TakenCommentsBlood Vrrjrcih625/8203/31/2024 8:59 AM EST Qaheh199803/31/2024 8:59 AM KQCQgvxjuzcveu68.3 ??C (97.3 ??F)08/01/2022 10:02 AM EDTRespiratory Fqgo622803/31/2024 8:59 AM ESTOxygen Kytyolwxjt675%08/01/2022 11:00 AM EDTInhaled Oxygen Concentration--Xqepjd178.3 kg (238 lb 12.8 oz)03/31/2024 8:59 AM ICHVzlyhe133.8 cm (5' 10 )03/31/2024 8:59 AM ESTBody Mass Index34.26 03/31/2024 8:59 AM EST Plan of Treatment Health MaintenanceDue DateLast DoneCommentsTobacco Nqhvssmynr16/15/1997 Depression Mevayoipa54/15/2009dult BMI Follow Up Plan2014Pap Smear 2017DTaP,Tdap and Td Vaccines (7 - Td or Tdap), 06/30/2002, 06/11/1998, Additional history existsInfluenza Nswzgje5310/31/2024 12/28/2019, 02/08/2016Adult BMI Huaauclsk01Tobacco Screening Medical Devices ImplantedTypeAreaManufacturerDevice IdentifierShelf Expiration DateModel / Serial / LotAnchor Sut 2.9mm Shrt Pshlk Bcmps Ea=Bill-Only - Sna - [id number] Implanted:Qty: 1 on 08/01/2022 by [facility]: XpankGgaraxs02/31/2023AR-8923BC / NA / [id number] Sut Arthx Dx Fibertak Ndl Strl Lf Ea=Bill-Only - Sna - [id number] Implanted:Qty: 2 on 08/01/2022 by [facility]: ArfnhDldqxbl81/31/2027AR-8990ST / NA / [id number] Procedures Procedure NamePriorityDate/TimeAssociated DiagnosisCommentsPROGESTERONERoutine 02/04/2025 10:42 AM EST Polycystic ovarian syndrome UHYBXIDVEXGOTeqersl19/10/2025 4:29 PM EST Polycystic ovarian syndrome JVVMEJFRZPNPUvywhcx95/09/2025 10:32 AM EDT Polycystic ovarian syndrome from Last 3 Months Results * Progesterone (02/04/2025 10:42 AM EST) Only the most recent of3 resultswithin the time period is included. ComponentValueRef RangeTest MethodAnalysis TimePerformed AtPathologist Signature TDBXMXXWORDW35.5ng/mL02/04/2025 4:20 PM [facility] Comment: FEMALES: 1st Tri: ??4.7-50.7 ng/ml 2nd Tri: ??19.4-45.3 ng/ml ? MENSTRUATING FEMALES: Follicular: ??0.3-1.5 ng/ml Mid Luteal: ??5.2-18.6 ng/ml Post Bsuhra: <0.1-0.8 ng/ml Specimen (Source)Anatomical Location / LateralityCollection Method / Volume Collection TimeReceived TimeBloodVenous blood / UnknownVenipuncture / Unknown 02/04/2025 10:42 AM EST02/04/2025 10:43 AM EST Narrative Authorizing ProviderResult TypeResult StatusCorey R Elpidio DOLAB BLOOD ORDERABLES Final ResultPerforming OrganizationAddressCity/State/ZIP CodePhone Number [facility] [address] [place] [address], from Last 3 Months Insurance Care Teams Team MemberRelationshipSpecialtyStart DateEnd Date Services, [facility] [address] [place], [place] PCP - GeneralFamily Ceadeehu60/9/25
--- OUTSIDE RECORDS SUMMARY | 2025-02-17 10:02 | XMS_ITS | Encounter Summary ---
Author Organization [facility] tem Address [id number] [address] [place] [address] Care Team Providers Care Repairer [employer] Name Role Phone Services, [facility] Primary Care Provider Encounter Details DateTypeDepartmentCare Team (Latest Contact Info)Ztmxmlkaemr41/06/2025Travel Social History Tobacco UseTypesPacks/DayYears UsedDateSmoking Tobacco: NeverSmokeless Tobacco: CurrentChewAlcohol UseStandard Drinks/WeekCommentsYes0 (1 standard drink = 0.6 oz pure alcohol)rareChildcareAnswerDate AepmamllUqrimwqbvQsnhfbv94/12/2019 EmploymentAnswerDate CwpjytkfZrvogeyewxPjaewhn60/12/2019Hunger ScreeningAnswer Date RecordedWithin the past 12 months we worried whether our food would run out before we got money to buy more.Never True11/18/2023Within the past 12 months the food we bought just didn't last and we didn't have money to get more.Never True4Purpose - LifeAnswerDate RecordedPurpose and direction in life Mxtdcge23/11/2021CommentsNoSex and Gender InformationValueDate Recorded Sex Assigned at BirthNot on fileLegal CepLxbrnt73/27/2016 4:15 PM EDTGender IdentityNot on fileSexual OrientationNot on filedocumented as of this encounter Plan of Treatment Not on file documented as of this encounter Visit Diagnoses Not on filedocumented in this encounter Care Teams Team MemberRelationshipSpecialtyStart DateEnd Date Services, [facility] [address] [place], [place] PCP - GeneralFamily Delaflzy69/9/25documented as of this encounter
--- NOTE | 2025-02-17 10:11 | FL_ITS ---
The [address] [address] Patient Name: DANIEL MORELAND MRN: [id number] date: 1995 Sex: F Assigned Patient Location: [place] Current Patient Location: [place] Accession/Order Number: [id number] Exam Date: 02/17/2025 11:00 Report Date: 02/17/2025 11:37 At the request of: DELIO MAGALLANES DO Procedure: FL hysterosalpingography HYSTEROSALPINGOGRAM CLINICAL DATA: Fallopian tube disorder COMPARISON: None The procedure was performed by Dr. Magallanes. A single spot view was submitted. It demonstrates contrast within the uterine cavity with appropriate size and contour. There is free contrast within the pelvis, greater on the left. The fallopian are difficult to identify however it is reported that both fallopian tubes were patent real-time. Fluoroscopy time: 0.4 seconds FL/FL hysterosalpingography IMPRESSION: DOCUMENTED TUBAL PATENCY Impression dictated by: Melita Berman M.D. 02/17/2025 11:37 AM Dictation [facility] Electronically authenticated by: [id number] Y Date: 02/17/2025 11:37
--- NOTE | 2025-02-17 11:35 | SUR.PREOP ---
02/13/25 Pt instructed on date, time, prep, and procedure.
[2025-02-17 11:39] VITALS: BMI 40.2
--- NOTE | 2025-02-17 11:42 | PC.NURSE ---
1106 Pt tearful and crying. Pt given much support. Pt able to stop crying and regroup. Up to bathroom. Pt c/o minimal bleeding after procedure and denies any cramping. Pt d/c in calm and reasonable stat. e
== END 2025-02-17 11:20 | disposition home or self-care (01) ==
LOC: FL 09:59
PROVIDERS: Visit Provider Obstetrics & Gynecology
DX: N83.9 Noninflammatory disorder of ovary, fallopian tube and broad ligament, unspecified (principal); E28.2 Polycystic ovarian syndrome; N93.9 Abnormal uterine and vaginal bleeding, unspecified
CPT/HCPCS: 36415; 58340; 74740; 84702; Q9966